=== PATIENT | male | born 1950 | race African-American/Black ===

== ENCOUNTER 2020-09-13 13:23 | Inpatient (IN) | payer OTHER ==
[2020-09-13 15:53] VITALS: BMI 23.7
[2020-09-13] MEDS ORDERED: MAGNESIUM HYDROX 2400MG/30ML ORAL SUSPENSION 30 ML CUP PO PRN (18:12)
[2020-09-13] MEDS ORDERED: ACETAMINOPHEN 325 MG TABLET (FP) PO PRN (18:12)
[2020-09-13] MEDS ORDERED: LORazepam 1 MG TABLET PO PRN (18:12)
[2020-09-13] MEDS ORDERED: ONDANSETRON *ODT* 4 MG TABLET SL PRN (18:12)
[2020-09-13] MEDS ORDERED: MAGNESIUM CITRATE 300 ML BOTTLE PO PRN (18:12)
[2020-09-13] MEDS ORDERED: MENTHOL/PHENOL 1 EACH UD MM PRN (18:12)
[2020-09-13] MEDS ORDERED: NICOTINE POLACRILEX 2 MG GUM BUC PRN (18:12)
[2020-09-13] MEDS ORDERED: BISMUTH SUBSALICYLATE 524 MG/30 ML PO PRN (18:12)
[2020-09-13] MEDS: LOSARTAN POTASSIUM 50 MG TABLET PO SCH (20:34)
[2020-09-13] MEDS: NICOTINE 14 MG/24 HOURS TOPICAL PATCH TD SCH (20:35)
[2020-09-13] MEDS: FLUTICASONE PROP 0.05% 16 GM NASAL SPRAY NS SCH (23:19)
[2020-09-13] MEDS: MELATONIN 5 MG TABLETS PO SCH (23:19)
[2020-09-13] MEDS: LORazepam 2 MG TABLET PO SCH (23:19)
[2020-09-13] MEDS: CALCIUM 500MG/VIT-D 200 UNITS COMBO TABLET (FP) PO SCH (23:19)
[2020-09-13] MEDS: hydrOXYzine PAMOATE 25 MG CAPSULE (FP) PO SCH (23:19)
[2020-09-13] MEDS: THIAMINE HCL 100 MG TABLET (FP) PO SCH (23:19)
[2020-09-14] MEDS: MAG HYDROX/AL HYDROX/SIMETH 30 ML UNIT-DOSE CUP PO PRN ×3 (02:10→22:29)
[2020-09-14] MEDS: METHOCARBAMOL 500 MG TABLET PO PRN (05:36)
[2020-09-14] MEDS: hydrOXYzine PAMOATE 25 MG CAPSULE (FP) PO SCH ×5 (05:36→22:27)
[2020-09-14] MEDS: LORazepam 2 MG TABLET PO SCH ×4 (05:36→22:27)
[2020-09-14] MEDS: PRENATAL VITAMINS W/ FOLIC ACID TABLET (FP) PO SCH (10:19)
[2020-09-14] MEDS: FLUTICASONE PROP 0.05% 16 GM NASAL SPRAY NS SCH ×2 (10:19→22:27)
[2020-09-14] MEDS: FAMOTIDINE 20 MG TABLET PO SCH (10:20)
[2020-09-14] MEDS: LOSARTAN POTASSIUM 50 MG TABLET PO SCH (10:20)
[2020-09-14] MEDS: CALCIUM 500MG/VIT-D 200 UNITS COMBO TABLET (FP) PO SCH ×2 (10:20→22:27)
[2020-09-14] MEDS: NICOTINE 14 MG/24 HOURS TOPICAL PATCH TD SCH (10:21)
[2020-09-14 12:44] LABS: HEMATOCRIT 35.8 % (35.4-49); HEMOGLOBIN 12.2 GM/dL (11.7-16.9); MCH 28.9 pg (25.7-33.7); MEAN PLT VOLUME 8.6 fl (7.5-11.1); PLATELET COUNT 143 10^3/uL (134-434); RBC 4.21 M/mm3 (4.00-5.60); RDW 13.8 % (11.9-15.9); WHITE BLOOD COUNT 2.6 K/mm3 (4.0-10.0)
[2020-09-14 12:52] LABS: ALBUMIN 3.3 g/dl (3.4-5.0)
[2020-09-14 13:01] LABS: BLOOD UREA NITROGEN 14.5 mg/dL (7-18)
[2020-09-14 13:03] LABS: BILIRUBIN,TOTAL 0.8 mg/dL (0.2-1); CALCIUM 8.3 mg/dL (8.5-10.1)
[2020-09-14 13:05] LABS: CREATININE 0.9 mg/dL (0.55-1.3); TOT PROT 6.3 g/dl (6.4-8.2)
[2020-09-14] MEDS: NIFEdipine E.R. 90 MG TABLET PO SCH (13:49)
[2020-09-14] MEDS: MELATONIN 5 MG TABLETS PO SCH (22:27)
[2020-09-14] MEDS: THIAMINE HCL 100 MG TABLET (FP) PO SCH (22:27)
[2020-09-15] MEDS: hydrOXYzine PAMOATE 25 MG CAPSULE (FP) PO SCH ×5 (05:34→22:00)
[2020-09-15] MEDS: LORazepam 1 MG TABLET PO SCH ×4 (05:34→22:01)
[2020-09-15] MEDS: METHOCARBAMOL 500 MG TABLET PO PRN (05:35)
[2020-09-15] MEDS: PRENATAL VITAMINS W/ FOLIC ACID TABLET (FP) PO SCH (10:36)
[2020-09-15] MEDS: LOSARTAN POTASSIUM 50 MG TABLET PO SCH (10:36)
[2020-09-15] MEDS: CALCIUM 500MG/VIT-D 200 UNITS COMBO TABLET (FP) PO SCH ×2 (10:37→22:00)
[2020-09-15] MEDS: FLUTICASONE PROP 0.05% 16 GM NASAL SPRAY NS SCH ×2 (10:37→22:01)
[2020-09-15] MEDS: NICOTINE 14 MG/24 HOURS TOPICAL PATCH TD SCH (10:38)
[2020-09-15] MEDS: FAMOTIDINE 20 MG TABLET PO SCH (10:38)
[2020-09-15] MEDS: NIFEdipine E.R. 90 MG TABLET PO SCH (10:42)
[2020-09-15] MEDS: LIDOCAINE 5% TOPICAL PATCH TP SCH (11:00)
[2020-09-15] MEDS: THIAMINE HCL 100 MG TABLET (FP) PO SCH (22:00)
[2020-09-15] MEDS: MELATONIN 5 MG TABLETS PO SCH (22:00)
[2020-09-15] MEDS: LIDOCAINE PATCH REMOVAL MC SCH (22:03)
[2020-09-16] MEDS ORDERED: LORazepam 0.5 MG TABLET PO PRN
[2020-09-16] MEDS: LORazepam 0.5 MG TABLET PO SCH ×4 (06:34→22:03)
[2020-09-16] MEDS: hydrOXYzine PAMOATE 25 MG CAPSULE (FP) PO SCH ×5 (06:35→22:03)
[2020-09-16] MEDS: NIFEdipine E.R. 90 MG TABLET PO SCH (10:16)
[2020-09-16] MEDS: NICOTINE 14 MG/24 HOURS TOPICAL PATCH TD SCH (10:16)
[2020-09-16] MEDS: CALCIUM 500MG/VIT-D 200 UNITS COMBO TABLET (FP) PO SCH ×2 (10:16→22:04)
[2020-09-16] MEDS: PRENATAL VITAMINS W/ FOLIC ACID TABLET (FP) PO SCH (10:16)
[2020-09-16] MEDS: FLUTICASONE PROP 0.05% 16 GM NASAL SPRAY NS SCH ×2 (10:17→22:04)
[2020-09-16] MEDS: LIDOCAINE 5% TOPICAL PATCH TP SCH (10:18)
[2020-09-16] MEDS: FAMOTIDINE 20 MG TABLET PO SCH (10:19)
[2020-09-16] MEDS: LOSARTAN POTASSIUM 50 MG TABLET PO SCH (13:15)
[2020-09-16 13:31] LABS: BASO % 0.8 % (0-2.0); EOS % 3.4 % (0-4.5); HEMATOCRIT 40.8 % (35.4-49); HEMOGLOBIN 13.4 GM/dL (11.7-16.9); LYMPH % 31.1 % (8-40); MCH 28.2 pg (25.7-33.7); MCHC 32.7 g/dl (32.0-35.9); MEAN CELL VOLUME 86.2 fl (80-96); MEAN PLT VOLUME 8.8 fl (7.5-11.1); MONO % 12.3 % (3.8-10.2); NEUT % 52.4 % (42.8-82.8); PLATELET COUNT 138 10^3/uL (134-434); RBC 4.74 M/mm3 (4.00-5.60); RDW 13.5 % (11.9-15.9); WHITE BLOOD COUNT 3.3 K/mm3 (4.0-10.0)
[2020-09-16] MEDS: ACETAMINOPHEN 325 MG TABLET (FP) PO PRN (20:10)
[2020-09-16] MEDS: MELATONIN 5 MG TABLETS PO SCH (22:03)
[2020-09-16] MEDS: LIDOCAINE PATCH REMOVAL MC SCH (22:04)
[2020-09-16] MEDS: THIAMINE HCL 100 MG TABLET (FP) PO SCH (22:04)
[2020-09-17] MEDS ORDERED: LORazepam 0.5 MG TABLET PO ONE (05:00)
[2020-09-17] MEDS: hydrOXYzine PAMOATE 25 MG CAPSULE (FP) PO SCH ×5 (06:06→22:02)
[2020-09-17] MEDS: ACETAMINOPHEN 325 MG TABLET (FP) PO PRN ×2 (06:06→22:05)
[2020-09-17] MEDS: PRENATAL VITAMINS W/ FOLIC ACID TABLET (FP) PO SCH (10:44)
[2020-09-17] MEDS: FAMOTIDINE 20 MG TABLET PO SCH (10:44)
[2020-09-17] MEDS: NICOTINE 14 MG/24 HOURS TOPICAL PATCH TD SCH (10:44)
[2020-09-17] MEDS: LIDOCAINE 5% TOPICAL PATCH TP SCH (10:45)
[2020-09-17] MEDS: LORazepam 0.5 MG TABLET PO SCH ×2 (10:45→21:30)
[2020-09-17] MEDS: NIFEdipine E.R. 90 MG TABLET PO SCH (10:45)
[2020-09-17] MEDS: FLUTICASONE PROP 0.05% 16 GM NASAL SPRAY NS SCH ×2 (10:45→22:01)
[2020-09-17] MEDS: CALCIUM 500MG/VIT-D 200 UNITS COMBO TABLET (FP) PO SCH ×2 (10:45→22:02)
[2020-09-17] MEDS: LOSARTAN POTASSIUM 50 MG TABLET PO SCH (10:45)
[2020-09-17] MEDS: THIAMINE HCL 100 MG TABLET (FP) PO SCH (22:02)
[2020-09-17] MEDS: MELATONIN 5 MG TABLETS PO SCH (22:02)
[2020-09-17] MEDS: LIDOCAINE PATCH REMOVAL MC SCH (22:03)
[2020-09-18] MEDS ORDERED: LORazepam 0.5 MG TABLET PO ONE (05:00)
[2020-09-18] MEDS: hydrOXYzine PAMOATE 25 MG CAPSULE (FP) PO SCH (05:34)
[2020-09-18 09:14] VITALS: BP 130/84; PULSE 68; TEMP 96.8
== END 2020-09-18 09:52 | disposition home or self-care (01) | DRG 897 ==
LOC: YASAS 13:23 → Y3N 18:58
PROVIDERS: ADMIT Allergy & Immunology; ATTEND Allergy & Immunology
PROC: HZ2ZZZZ Detoxification Services for Substance Abuse Treatment (ICD-10-PCS; principal; 2020-09-13)
DX: F10.230 Alcohol dependence with withdrawal, uncomplicated (principal); F14.20 Cocaine dependence, uncomplicated; F17.210 Nicotine dependence, cigarettes, uncomplicated; F19.24 Other psychoactive substance dependence with psychoactive substance-induced mood disorder; M41.9 Scoliosis, unspecified; M54.5 Low back pain; G89.29 Other chronic pain; Z96.641 Presence of right artificial hip joint; Z85.46 Personal history of malignant neoplasm of prostate
CPT/HCPCS: 36415; 72100-TC-FY; 80053; 85025; 85027; 86780; 93005; 93010; C9803; Q0162; U0003; U0005

== ENCOUNTER 2020-10-13 11:52 | Inpatient (IN) | payer OTHER ==
[~2020-10-13 11:52] MED LIST: chlordiazePOXIDE HCL 25 MG CAPSULE PO SCH
[2020-10-13 12:35] VITALS: BMI 24.3
[2020-10-13] MEDS ORDERED: ACETAMINOPHEN 325 MG TABLET (FP) PO PRN (12:51)
[2020-10-13] MEDS ORDERED: NICOTINE 10 MG CARTRIDGE (INHALER) IH PRN (12:51)
[2020-10-13] MEDS ORDERED: chlordiazePOXIDE HCL 25 MG CAPSULE PO PRN (12:51)
[2020-10-13] MEDS ORDERED: MAGNESIUM CITRATE 300 ML BOTTLE PO PRN (12:51)
[2020-10-13] MEDS ORDERED: BISMUTH SUBSALICYLATE 524 MG/30 ML PO PRN (12:51)
[2020-10-13] MEDS ORDERED: MENTHOL/PHENOL 1 EACH UD MM PRN (12:51)
[2020-10-13] MEDS ORDERED: IBUPROFEN 400 MG TABLET (FP) PO PRN (12:51)
[2020-10-13] MEDS ORDERED: chlordiazePOXIDE HCL 25 MG CAPSULE PO SCH (12:55)
[2020-10-13] MEDS ORDERED: diazePAM 5 MG TABLET PO PRN (13:27)
[2020-10-13] MEDS: PRENATAL VITAMINS W/ FOLIC ACID TABLET (FP) PO SCH (14:26)
[2020-10-13] MEDS: hydrOXYzine PAMOATE 25 MG CAPSULE (FP) PO SCH ×3 (14:26→22:14)
[2020-10-13] MEDS: NICOTINE 7 MG/24 HOURS TOPICAL PATCH TD SCH (14:27)
[2020-10-13 15:56] LABS: CALCIUM 8.3 mg/dL (8.5-10.1)
[2020-10-13 15:57] LABS: ALBUMIN 3.8 g/dl (3.4-5.0); BLOOD UREA NITROGEN 23.4 mg/dL (7-18)
[2020-10-13 16:00] LABS: CREATININE 1.3 mg/dL (0.55-1.3)
[2020-10-13 16:02] LABS: BILIRUBIN,TOTAL 0.9 mg/dL (0.2-1); TOT PROT 7.2 g/dl (6.4-8.2)
[2020-10-13 16:08] LABS: HEMATOCRIT 37.9 % (35.4-49); HEMOGLOBIN 12.8 GM/dL (11.7-16.9); MCH 28.3 pg (25.7-33.7); MCHC 33.7 g/dl (32.0-35.9); MEAN CELL VOLUME 83.9 fl (80-96); MEAN PLT VOLUME 8.3 fl (7.5-11.1); PLATELET COUNT 191 10^3/uL (134-434); RBC 4.52 M/mm3 (4.00-5.60); RDW 14.1 % (11.9-15.9); WHITE BLOOD COUNT 4.7 K/mm3 (4.0-10.0)
[2020-10-13] MEDS: ONDANSETRON *ODT* 4 MG TABLET SL PRN (17:27)
[2020-10-13] MEDS: diazePAM 5 MG TABLET PO SCH ×2 (17:42→22:12)
[2020-10-13] MEDS: THIAMINE HCL 100 MG TABLET (FP) PO SCH (22:13)
[2020-10-13] MEDS: MELATONIN 5 MG TABLETS PO SCH (22:14)
[2020-10-14] MEDS: FLUTICASONE PROP 0.05% 16 GM NASAL SPRAY NS SCH ×3 (00:06→22:41)
[2020-10-14] MEDS: hydrOXYzine PAMOATE 25 MG CAPSULE (FP) PO SCH ×5 (06:28→22:42)
[2020-10-14] MEDS: diazePAM 5 MG TABLET PO SCH ×4 (06:29→22:40)
[2020-10-14] MEDS: PRENATAL VITAMINS W/ FOLIC ACID TABLET (FP) PO SCH (10:37)
[2020-10-14] MEDS: FAMOTIDINE 20 MG TABLET PO SCH (10:38)
[2020-10-14] MEDS: METHOCARBAMOL 500 MG TABLET PO PRN (10:38)
[2020-10-14] MEDS: NICOTINE 7 MG/24 HOURS TOPICAL PATCH TD SCH (10:41)
[2020-10-14] MEDS: LOSARTAN POTASSIUM 50 MG TABLET PO SCH (12:46)
[2020-10-14] MEDS: NIFEdipine E.R. 90 MG TABLET PO SCH (12:46)
[2020-10-14] MEDS: ONDANSETRON *ODT* 4 MG TABLET SL PRN (19:39)
[2020-10-14] MEDS: THIAMINE HCL 100 MG TABLET (FP) PO SCH (22:40)
[2020-10-14] MEDS: MELATONIN 5 MG TABLETS PO SCH (22:41)
[2020-10-15] MEDS ORDERED: chlordiazePOXIDE HCL 25 MG CAPSULE PO SCH (05:00)
[2020-10-15] MEDS: hydrOXYzine PAMOATE 25 MG CAPSULE (FP) PO SCH ×5 (05:45→21:59)
[2020-10-15] MEDS: diazePAM 5 MG TABLET PO SCH ×3 (05:45→21:59)
[2020-10-15] MEDS: PRENATAL VITAMINS W/ FOLIC ACID TABLET (FP) PO SCH (10:31)
[2020-10-15] MEDS: FLUTICASONE PROP 0.05% 16 GM NASAL SPRAY NS SCH ×2 (10:31→22:01)
[2020-10-15] MEDS: FAMOTIDINE 20 MG TABLET PO SCH (10:31)
[2020-10-15] MEDS: NICOTINE 7 MG/24 HOURS TOPICAL PATCH TD SCH (10:32)
[2020-10-15] MEDS: LOSARTAN POTASSIUM 50 MG TABLET PO SCH (14:07)
[2020-10-15] MEDS: NIFEdipine E.R. 90 MG TABLET PO SCH (14:07)
[2020-10-15] MEDS ORDERED: hydrOXYzine PAMOATE 25 MG CAPSULE (FP) PO ONE (20:20)
[2020-10-15] MEDS: MAG HYDROX/AL HYDROX/SIMETH 30 ML UNIT-DOSE CUP PO PRN (20:43)
[2020-10-15] MEDS: THIAMINE HCL 100 MG TABLET (FP) PO SCH (21:59)
[2020-10-15] MEDS: MELATONIN 5 MG TABLETS PO SCH (21:59)
[2020-10-16] MEDS ORDERED: chlordiazePOXIDE HCL 10 MG CAPSULE PO PRN
[2020-10-16] MEDS ORDERED: chlordiazePOXIDE HCL 10 MG CAPSULE PO SCH (05:00)
[2020-10-16] MEDS: hydrOXYzine PAMOATE 25 MG CAPSULE (FP) PO SCH ×6 (05:12→22:24)
[2020-10-16] MEDS: ACETAMINOPHEN 325 MG TABLET (FP) PO PRN (05:13)
[2020-10-16] MEDS: ONDANSETRON *ODT* 4 MG TABLET SL PRN (05:14)
[2020-10-16] MEDS: diazePAM 5 MG TABLET PO SCH ×3 (05:14→18:36)
[2020-10-16] MEDS ORDERED: PATIENT'S OWN MEDICATION (NON-FORMULARY) (Omeprazole Magnesium [Prilosec] 10 MG Suspdr.Pkt PO SCH (10:00)
[2020-10-16] MEDS: FLUTICASONE PROP 0.05% 16 GM NASAL SPRAY NS SCH ×2 (10:18→22:24)
[2020-10-16] MEDS: amLODIPine BESYLATE 5 MG TABLET (FP) PO SCH (10:18)
[2020-10-16] MEDS: LOSARTAN POTASSIUM 50 MG TABLET PO SCH (10:19)
[2020-10-16] MEDS: FAMOTIDINE 20 MG TABLET PO SCH (10:19)
[2020-10-16] MEDS: NIFEdipine E.R. 90 MG TABLET PO SCH (10:19)
[2020-10-16] MEDS: PRENATAL VITAMINS W/ FOLIC ACID TABLET (FP) PO SCH (10:19)
[2020-10-16] MEDS: METHOCARBAMOL 500 MG TABLET PO PRN (10:19)
[2020-10-16] MEDS: NICOTINE 7 MG/24 HOURS TOPICAL PATCH TD SCH (10:21)
[2020-10-16] MEDS: HYDROCHLOROTHIAZIDE 12.5 MG CAPSULE (FP) PO SCH (13:58)
[2020-10-16] MEDS: MAGNESIUM HYDROX 2400MG/30ML ORAL SUSPENSION 30 ML CUP PO PRN ×2 (17:44→22:43)
[2020-10-16] MEDS: MAG HYDROX/AL HYDROX/SIMETH 30 ML UNIT-DOSE CUP PO PRN (17:45)
[2020-10-16] MEDS: MELATONIN 5 MG TABLETS PO SCH (22:24)
[2020-10-16] MEDS: THIAMINE HCL 100 MG TABLET (FP) PO SCH (22:24)
[2020-10-17] MEDS ORDERED: chlordiazePOXIDE HCL 10 MG CAPSULE PO SCH (05:00)
[2020-10-17] MEDS ORDERED: diazePAM 5 MG TABLET PO ONE (06:00)
[2020-10-17] MEDS: ONDANSETRON *ODT* 4 MG TABLET SL PRN (06:20)
[2020-10-17] MEDS: ACETAMINOPHEN 325 MG TABLET (FP) PO PRN (06:20)
[2020-10-17] MEDS: hydrOXYzine PAMOATE 25 MG CAPSULE (FP) PO SCH ×5 (06:21→22:23)
[2020-10-17] MEDS: METHOCARBAMOL 500 MG TABLET PO PRN (11:35)
[2020-10-17] MEDS: LOSARTAN POTASSIUM 50 MG TABLET PO SCH (11:35)
[2020-10-17] MEDS: amLODIPine BESYLATE 5 MG TABLET (FP) PO SCH (11:35)
[2020-10-17] MEDS: FAMOTIDINE 20 MG TABLET PO SCH (11:36)
[2020-10-17] MEDS: HYDROCHLOROTHIAZIDE 12.5 MG CAPSULE (FP) PO SCH (11:36)
[2020-10-17] MEDS: FLUTICASONE PROP 0.05% 16 GM NASAL SPRAY NS SCH ×2 (11:36→22:24)
[2020-10-17] MEDS: NICOTINE 7 MG/24 HOURS TOPICAL PATCH TD SCH (11:39)
[2020-10-17] MEDS: PRENATAL VITAMINS W/ FOLIC ACID TABLET (FP) PO SCH (11:40)
[2020-10-17] MEDS: NIFEdipine E.R. 90 MG TABLET PO SCH (11:40)
[2020-10-17] MEDS: MELATONIN 5 MG TABLETS PO SCH (22:23)
[2020-10-17] MEDS: THIAMINE HCL 100 MG TABLET (FP) PO SCH (22:23)
[2020-10-18] MEDS ORDERED: chlordiazePOXIDE HCL 10 MG CAPSULE PO ONE (05:00)
[2020-10-18] MEDS: hydrOXYzine PAMOATE 25 MG CAPSULE (FP) PO SCH ×2 (06:26→11:04)
[2020-10-18 06:49] VITALS: BP 111/74; PULSE 62; TEMP 96.1
[2020-10-18] MEDS: FAMOTIDINE 20 MG TABLET PO SCH (10:11)
[2020-10-18] MEDS: amLODIPine BESYLATE 5 MG TABLET (FP) PO SCH (10:11)
[2020-10-18] MEDS: METHOCARBAMOL 500 MG TABLET PO PRN (10:11)
[2020-10-18] MEDS: PRENATAL VITAMINS W/ FOLIC ACID TABLET (FP) PO SCH (10:11)
[2020-10-18] MEDS: FLUTICASONE PROP 0.05% 16 GM NASAL SPRAY NS SCH (10:12)
[2020-10-18] MEDS: HYDROCHLOROTHIAZIDE 12.5 MG CAPSULE (FP) PO SCH (10:12)
[2020-10-18] MEDS: NIFEdipine E.R. 90 MG TABLET PO SCH (10:12)
[2020-10-18] MEDS: LOSARTAN POTASSIUM 50 MG TABLET PO SCH (10:12)
[2020-10-18] MEDS: NICOTINE 7 MG/24 HOURS TOPICAL PATCH TD SCH (10:15)
== END 2020-10-18 11:35 | disposition other institution (70) | DRG 897 ==
LOC: YASAS 11:52 → Y6N 12:57 → UNDODISIN 10-15 07:43
PROVIDERS: ADMIT Allergy & Immunology; ATTEND Allergy & Immunology
PROC: HZ2ZZZZ Detoxification Services for Substance Abuse Treatment (ICD-10-PCS; principal; 2020-10-13)
DX: F10.230 Alcohol dependence with withdrawal, uncomplicated (principal); F14.20 Cocaine dependence, uncomplicated; F17.210 Nicotine dependence, cigarettes, uncomplicated; I10 Essential (primary) hypertension; K21.9 Gastro-esophageal reflux disease without esophagitis; M19.90 Unspecified osteoarthritis, unspecified site; M54.5 Low back pain; G89.29 Other chronic pain; Z85.46 Personal history of malignant neoplasm of prostate; Z96.641 Presence of right artificial hip joint
CPT/HCPCS: 36415; 80053; 84520; 85027; 86780; 93005; 93010; C9803; Q0162; U0003; U0005

== ENCOUNTER 2020-10-18 10:41 | Inpatient (IN) | payer OTHER ==
[2020-10-18] MEDS ORDERED: MAGNESIUM CITRATE 300 ML BOTTLE PO PRN (12:04)
[2020-10-18] MEDS ORDERED: NICOTINE POLACRILEX 2 MG GUM BUC PRN (12:04)
[2020-10-18] MEDS ORDERED: LOPERAMIDE HCL 2 MG CAPSULE PO PRN (12:04)
[2020-10-18] MEDS ORDERED: NICOTINE 10 MG CARTRIDGE (INHALER) IH PRN (12:04)
[2020-10-18] MEDS ORDERED: guaiFENesin 200 MG/10 ML 10 ML UNIT-DOSE CUPS PO PRN (12:04)
[2020-10-18] MEDS: THIAMINE HCL 100 MG TABLET (FP) PO SCH (21:33)
[2020-10-18] MEDS: MELATONIN 5 MG TABLETS PO SCH (21:33)
[2020-10-18] MEDS: FLUTICASONE PROP 0.05% 16 GM NASAL SPRAY NS SCH (21:34)
[2020-10-19] MEDS: ACETAMINOPHEN 325 MG TABLET (FP) PO PRN ×2 (06:23→19:20)
[2020-10-19] MEDS ORDERED: PT OWN MED DRAWER 7, Y5N ONE (08:55)
[2020-10-19] MEDS: LOSARTAN POTASSIUM 50 MG TABLET PO SCH (09:48)
[2020-10-19] MEDS: HYDROCHLOROTHIAZIDE 12.5 MG CAPSULE (FP) PO SCH (09:48)
[2020-10-19] MEDS: NIFEdipine E.R. 90 MG TABLET PO SCH (09:48)
[2020-10-19] MEDS: FAMOTIDINE 10 MG TABLET PO SCH (09:49)
[2020-10-19] MEDS: PRENATAL VITAMINS W/ FOLIC ACID TABLET (FP) PO SCH (09:49)
[2020-10-19] MEDS: NICOTINE 7 MG/24 HOURS TOPICAL PATCH TD SCH (09:49)
[2020-10-19] MEDS ORDERED: amLODIPine BESYLATE 5 MG TABLET (FP) PO SCH (10:00)
[2020-10-19] MEDS ORDERED: PATIENT'S OWN MEDICATION (NON-FORMULARY) (Omeprazole [Omeprazole] 10 MG Capsule.Dr) PO SCH (10:00)
[2020-10-19] MEDS: FLUTICASONE PROP 0.05% 16 GM NASAL SPRAY NS SCH ×2 (10:45→21:17)
[2020-10-19] MEDS: MELATONIN 5 MG TABLETS PO SCH (21:16)
[2020-10-19] MEDS: THIAMINE HCL 100 MG TABLET (FP) PO SCH (21:16)
[2020-10-20] MEDS: IBUPROFEN 400 MG TABLET (FP) PO PRN (06:56)
[2020-10-20] MEDS: MAG HYDROX/AL HYDROX/SIMETH 30 ML UNIT-DOSE CUP PO PRN (06:56)
[2020-10-20] MEDS: MAGNESIUM HYDROX 2400MG/30ML ORAL SUSPENSION 30 ML CUP PO PRN (06:58)
[2020-10-20] MEDS ORDERED: PT OWN MED DRAWER 7, Y5N ONE ×3 (08:37→20:04)
[2020-10-20] MEDS: FAMOTIDINE 10 MG TABLET PO SCH (09:33)
[2020-10-20] MEDS: FLUTICASONE PROP 0.05% 16 GM NASAL SPRAY NS SCH ×2 (09:36→21:29)
[2020-10-20] MEDS: LOSARTAN POTASSIUM 50 MG TABLET PO SCH (09:37)
[2020-10-20] MEDS: NICOTINE 7 MG/24 HOURS TOPICAL PATCH TD SCH (09:37)
[2020-10-20] MEDS: HYDROCHLOROTHIAZIDE 12.5 MG CAPSULE (FP) PO SCH (09:37)
[2020-10-20] MEDS: PRENATAL VITAMINS W/ FOLIC ACID TABLET (FP) PO SCH (09:38)
[2020-10-20] MEDS: NIFEdipine E.R. 90 MG TABLET PO SCH (09:39)
[2020-10-20] MEDS: THIAMINE HCL 100 MG TABLET (FP) PO SCH (21:28)
[2020-10-20] MEDS: MELATONIN 5 MG TABLETS PO SCH (21:28)
[2020-10-21] MEDS ORDERED: PT OWN MED DRAWER 7, Y5N ONE (08:09)
[2020-10-21] MEDS: PRENATAL VITAMINS W/ FOLIC ACID TABLET (FP) PO SCH (09:38)
[2020-10-21] MEDS: HYDROCHLOROTHIAZIDE 12.5 MG CAPSULE (FP) PO SCH (09:38)
[2020-10-21] MEDS: FLUTICASONE PROP 0.05% 16 GM NASAL SPRAY NS SCH ×2 (09:38→21:30)
[2020-10-21] MEDS: LOSARTAN POTASSIUM 50 MG TABLET PO SCH (09:38)
[2020-10-21] MEDS: FAMOTIDINE 10 MG TABLET PO SCH (09:38)
[2020-10-21] MEDS: NIFEdipine E.R. 90 MG TABLET PO SCH (09:39)
[2020-10-21] MEDS: NICOTINE 7 MG/24 HOURS TOPICAL PATCH TD SCH (09:39)
[2020-10-21] MEDS: MAGNESIUM HYDROX 2400MG/30ML ORAL SUSPENSION 30 ML CUP PO PRN (09:46)
[2020-10-21] MEDS: THIAMINE HCL 100 MG TABLET (FP) PO SCH (21:31)
[2020-10-21] MEDS: MELATONIN 5 MG TABLETS PO SCH (21:31)
[2020-10-22] MEDS ORDERED: PT OWN MED DRAWER 7, Y5N ONE ×2 (04:02→08:38)
[2020-10-22] MEDS: FAMOTIDINE 10 MG TABLET PO SCH (09:43)
[2020-10-22] MEDS: PRENATAL VITAMINS W/ FOLIC ACID TABLET (FP) PO SCH (09:43)
[2020-10-22] MEDS: NICOTINE 7 MG/24 HOURS TOPICAL PATCH TD SCH (09:43)
[2020-10-22] MEDS: NIFEdipine E.R. 90 MG TABLET PO SCH (09:43)
[2020-10-22] MEDS: LOSARTAN POTASSIUM 50 MG TABLET PO SCH (09:43)
[2020-10-22] MEDS: HYDROCHLOROTHIAZIDE 12.5 MG CAPSULE (FP) PO SCH (09:43)
[2020-10-22] MEDS: FLUTICASONE PROP 0.05% 16 GM NASAL SPRAY NS SCH ×2 (09:44→21:31)
[2020-10-22] MEDS: MELATONIN 5 MG TABLETS PO SCH (21:31)
[2020-10-22] MEDS: THIAMINE HCL 100 MG TABLET (FP) PO SCH (21:31)
[2020-10-23] MEDS: ACETAMINOPHEN 325 MG TABLET (FP) PO PRN (06:17)
[2020-10-23] MEDS: MAGNESIUM HYDROX 2400MG/30ML ORAL SUSPENSION 30 ML CUP PO PRN (06:18)
[2020-10-23] MEDS ORDERED: PT OWN MED DRAWER 7, Y5N ONE ×2 (08:06→18:40)
[2020-10-23] MEDS: FLUTICASONE PROP 0.05% 16 GM NASAL SPRAY NS SCH ×2 (09:33→21:04)
[2020-10-23] MEDS: PRENATAL VITAMINS W/ FOLIC ACID TABLET (FP) PO SCH (09:33)
[2020-10-23] MEDS: FAMOTIDINE 10 MG TABLET PO SCH (09:33)
[2020-10-23] MEDS: NICOTINE 7 MG/24 HOURS TOPICAL PATCH TD SCH (09:33)
[2020-10-23] MEDS: HYDROCHLOROTHIAZIDE 12.5 MG CAPSULE (FP) PO SCH (09:35)
[2020-10-23] MEDS: LOSARTAN POTASSIUM 50 MG TABLET PO SCH (09:36)
[2020-10-23] MEDS: NIFEdipine E.R. 90 MG TABLET PO SCH (09:36)
[2020-10-23] MEDS: MELATONIN 5 MG TABLETS PO SCH (21:04)
[2020-10-23] MEDS: THIAMINE HCL 100 MG TABLET (FP) PO SCH (21:04)
[2020-10-24] MEDS: ACETAMINOPHEN 325 MG TABLET (FP) PO PRN ×2 (06:15→21:21)
[2020-10-24] MEDS: MAGNESIUM HYDROX 2400MG/30ML ORAL SUSPENSION 30 ML CUP PO PRN (06:17)
[2020-10-24] MEDS ORDERED: PT OWN MED DRAWER 7, Y5N ONE ×2 (08:05→19:35)
[2020-10-24] MEDS: FLUTICASONE PROP 0.05% 16 GM NASAL SPRAY NS SCH ×2 (09:23→21:20)
[2020-10-24] MEDS: LOSARTAN POTASSIUM 50 MG TABLET PO SCH (09:24)
[2020-10-24] MEDS: NIFEdipine E.R. 90 MG TABLET PO SCH (09:24)
[2020-10-24] MEDS: FAMOTIDINE 10 MG TABLET PO SCH (09:24)
[2020-10-24] MEDS: HYDROCHLOROTHIAZIDE 12.5 MG CAPSULE (FP) PO SCH (09:24)
[2020-10-24] MEDS: NICOTINE 7 MG/24 HOURS TOPICAL PATCH TD SCH (09:25)
[2020-10-24] MEDS: PRENATAL VITAMINS W/ FOLIC ACID TABLET (FP) PO SCH (09:25)
[2020-10-24] MEDS: THIAMINE HCL 100 MG TABLET (FP) PO SCH (21:20)
[2020-10-24] MEDS: MELATONIN 5 MG TABLETS PO SCH (21:20)
[2020-10-25] MEDS ORDERED: PT OWN MED DRAWER 7, Y5N ONE (09:27)
[2020-10-25] MEDS: PRENATAL VITAMINS W/ FOLIC ACID TABLET (FP) PO SCH (09:56)
[2020-10-25] MEDS: FLUTICASONE PROP 0.05% 16 GM NASAL SPRAY NS SCH ×2 (09:57→21:35)
[2020-10-25] MEDS: NICOTINE 7 MG/24 HOURS TOPICAL PATCH TD SCH (09:57)
[2020-10-25] MEDS: FAMOTIDINE 10 MG TABLET PO SCH (09:57)
[2020-10-25] MEDS: HYDROCHLOROTHIAZIDE 12.5 MG CAPSULE (FP) PO SCH (12:04)
[2020-10-25] MEDS: LOSARTAN POTASSIUM 50 MG TABLET PO SCH (12:04)
[2020-10-25] MEDS: NIFEdipine E.R. 90 MG TABLET PO SCH (12:04)
[2020-10-25] MEDS: MELATONIN 5 MG TABLETS PO SCH (21:35)
[2020-10-25] MEDS: THIAMINE HCL 100 MG TABLET (FP) PO SCH (21:35)
[2020-10-26] MEDS ORDERED: PT OWN MED DRAWER 7, Y5N ONE (08:36)
[2020-10-26] MEDS: FLUTICASONE PROP 0.05% 16 GM NASAL SPRAY NS SCH ×2 (09:38→21:32)
[2020-10-26] MEDS: FAMOTIDINE 10 MG TABLET PO SCH (09:38)
[2020-10-26] MEDS: NIFEdipine E.R. 90 MG TABLET PO SCH (09:39)
[2020-10-26] MEDS: HYDROCHLOROTHIAZIDE 12.5 MG CAPSULE (FP) PO SCH (09:39)
[2020-10-26] MEDS: LOSARTAN POTASSIUM 50 MG TABLET PO SCH (09:39)
[2020-10-26] MEDS: PRENATAL VITAMINS W/ FOLIC ACID TABLET (FP) PO SCH (09:39)
[2020-10-26] MEDS: NICOTINE 7 MG/24 HOURS TOPICAL PATCH TD SCH (09:40)
[2020-10-26] MEDS: MELATONIN 5 MG TABLETS PO SCH (21:32)
[2020-10-26] MEDS: THIAMINE HCL 100 MG TABLET (FP) PO SCH (21:32)
[2020-10-27] MEDS: ACETAMINOPHEN 325 MG TABLET (FP) PO PRN (06:33)
[2020-10-27] MEDS ORDERED: PT OWN MED DRAWER 7, Y5N ONE (08:35)
[2020-10-27] MEDS: NICOTINE 7 MG/24 HOURS TOPICAL PATCH TD SCH (09:53)
[2020-10-27] MEDS: FAMOTIDINE 10 MG TABLET PO SCH (09:53)
[2020-10-27] MEDS: NIFEdipine E.R. 90 MG TABLET PO SCH (09:53)
[2020-10-27] MEDS: PRENATAL VITAMINS W/ FOLIC ACID TABLET (FP) PO SCH (09:53)
[2020-10-27] MEDS: FLUTICASONE PROP 0.05% 16 GM NASAL SPRAY NS SCH ×2 (09:54→21:23)
[2020-10-27] MEDS: MELATONIN 5 MG TABLETS PO SCH (21:23)
[2020-10-27] MEDS: THIAMINE HCL 100 MG TABLET (FP) PO SCH (21:23)
[2020-10-28] MEDS: MAGNESIUM HYDROX 2400MG/30ML ORAL SUSPENSION 30 ML CUP PO PRN (06:51)
[2020-10-28] MEDS: ACETAMINOPHEN 325 MG TABLET (FP) PO PRN (06:51)
[2020-10-28] MEDS ORDERED: MASKS NR ONE (08:03)
[2020-10-28] MEDS ORDERED: PT OWN MED DRAWER 7, Y5N ONE ×2 (08:28→15:01)
[2020-10-28] MEDS: FAMOTIDINE 10 MG TABLET PO SCH (09:47)
[2020-10-28] MEDS: NIFEdipine E.R. 90 MG TABLET PO SCH (09:47)
[2020-10-28] MEDS: PRENATAL VITAMINS W/ FOLIC ACID TABLET (FP) PO SCH (09:47)
[2020-10-28] MEDS: NICOTINE 7 MG/24 HOURS TOPICAL PATCH TD SCH (09:48)
[2020-10-28] MEDS: FLUTICASONE PROP 0.05% 16 GM NASAL SPRAY NS SCH ×2 (09:48→23:18)
[2020-10-28] MEDS: IBUPROFEN 400 MG TABLET (FP) PO PRN (19:08)
[2020-10-28] MEDS: THIAMINE HCL 100 MG TABLET (FP) PO SCH (21:11)
[2020-10-28] MEDS: MELATONIN 5 MG TABLETS PO SCH (21:11)
[2020-10-29] MEDS: FLUTICASONE PROP 0.05% 16 GM NASAL SPRAY NS SCH ×2 (09:54→21:58)
[2020-10-29] MEDS: PRENATAL VITAMINS W/ FOLIC ACID TABLET (FP) PO SCH (09:54)
[2020-10-29] MEDS: FAMOTIDINE 10 MG TABLET PO SCH (09:55)
[2020-10-29] MEDS: NICOTINE 7 MG/24 HOURS TOPICAL PATCH TD SCH (09:55)
[2020-10-29] MEDS: NIFEdipine E.R. 90 MG TABLET PO SCH (09:55)
[2020-10-29] MEDS: MELATONIN 5 MG TABLETS PO SCH (21:58)
[2020-10-29] MEDS: THIAMINE HCL 100 MG TABLET (FP) PO SCH (21:58)
[2020-10-30] MEDS: FLUTICASONE PROP 0.05% 16 GM NASAL SPRAY NS SCH ×2 (09:41→21:06)
[2020-10-30] MEDS: NICOTINE 7 MG/24 HOURS TOPICAL PATCH TD SCH (09:41)
[2020-10-30] MEDS: PRENATAL VITAMINS W/ FOLIC ACID TABLET (FP) PO SCH (09:41)
[2020-10-30] MEDS: NIFEdipine E.R. 90 MG TABLET PO SCH (09:42)
[2020-10-30] MEDS: FAMOTIDINE 10 MG TABLET PO SCH (09:42)
[2020-10-30] MEDS: MAGNESIUM HYDROX 2400MG/30ML ORAL SUSPENSION 30 ML CUP PO PRN (20:08)
[2020-10-30] MEDS: ACETAMINOPHEN 325 MG TABLET (FP) PO PRN (20:09)
[2020-10-30] MEDS: THIAMINE HCL 100 MG TABLET (FP) PO SCH (21:05)
[2020-10-30] MEDS: MELATONIN 5 MG TABLETS PO SCH (21:05)
[2020-10-31] MEDS ORDERED: PT OWN MED DRAWER 7, Y5N ONE ×2 (08:38→19:10)
[2020-10-31] MEDS: FAMOTIDINE 10 MG TABLET PO SCH (09:27)
[2020-10-31] MEDS: NICOTINE 7 MG/24 HOURS TOPICAL PATCH TD SCH (09:28)
[2020-10-31] MEDS: FLUTICASONE PROP 0.05% 16 GM NASAL SPRAY NS SCH ×2 (09:28→21:44)
[2020-10-31] MEDS: PRENATAL VITAMINS W/ FOLIC ACID TABLET (FP) PO SCH (09:28)
[2020-10-31] MEDS: NIFEdipine E.R. 90 MG TABLET PO SCH (09:28)
[2020-10-31] MEDS: THIAMINE HCL 100 MG TABLET (FP) PO SCH (21:45)
[2020-10-31] MEDS: MELATONIN 5 MG TABLETS PO SCH (21:45)
[2020-11-01] MEDS: ACETAMINOPHEN 325 MG TABLET (FP) PO PRN (07:02)
[2020-11-01] MEDS ORDERED: PT OWN MED DRAWER 7, Y5N ONE ×3 (09:00→22:42)
[2020-11-01] MEDS: FAMOTIDINE 10 MG TABLET PO SCH (09:26)
[2020-11-01] MEDS: FLUTICASONE PROP 0.05% 16 GM NASAL SPRAY NS SCH ×2 (09:26→21:11)
[2020-11-01] MEDS: NICOTINE 7 MG/24 HOURS TOPICAL PATCH TD SCH (09:27)
[2020-11-01] MEDS: NIFEdipine E.R. 90 MG TABLET PO SCH (09:27)
[2020-11-01] MEDS: PRENATAL VITAMINS W/ FOLIC ACID TABLET (FP) PO SCH (09:27)
[2020-11-01] MEDS: MAG HYDROX/AL HYDROX/SIMETH 30 ML UNIT-DOSE CUP PO PRN (11:28)
[2020-11-01] MEDS: THIAMINE HCL 100 MG TABLET (FP) PO SCH (21:11)
[2020-11-01] MEDS: MELATONIN 5 MG TABLETS PO SCH (21:11)
[2020-11-02] MEDS ORDERED: PT OWN MED DRAWER 7, Y5N ONE ×5 (08:21→10:57)
[2020-11-02] MEDS: PRENATAL VITAMINS W/ FOLIC ACID TABLET (FP) PO SCH (09:37)
[2020-11-02] MEDS: NIFEdipine E.R. 90 MG TABLET PO SCH (09:38)
[2020-11-02] MEDS: FLUTICASONE PROP 0.05% 16 GM NASAL SPRAY NS SCH ×2 (09:38→21:19)
[2020-11-02] MEDS: NICOTINE 7 MG/24 HOURS TOPICAL PATCH TD SCH (09:40)
[2020-11-02] MEDS: FAMOTIDINE 10 MG TABLET PO SCH (10:15)
[2020-11-02] MEDS: ACETAMINOPHEN 325 MG TABLET (FP) PO PRN (14:59)
[2020-11-02] MEDS: MELATONIN 5 MG TABLETS PO SCH (21:19)
[2020-11-02] MEDS: THIAMINE HCL 100 MG TABLET (FP) PO SCH (21:19)
[2020-11-03] MEDS: ACETAMINOPHEN 325 MG TABLET (FP) PO PRN ×2 (06:14→19:23)
[2020-11-03] MEDS: MAGNESIUM HYDROX 2400MG/30ML ORAL SUSPENSION 30 ML CUP PO PRN (06:15)
[2020-11-03] MEDS ORDERED: PT OWN MED DRAWER 7, Y5N ONE (08:22)
[2020-11-03] MEDS: PRENATAL VITAMINS W/ FOLIC ACID TABLET (FP) PO SCH (09:38)
[2020-11-03] MEDS: NIFEdipine E.R. 90 MG TABLET PO SCH (09:38)
[2020-11-03] MEDS: FLUTICASONE PROP 0.05% 16 GM NASAL SPRAY NS SCH ×2 (09:38→22:37)
[2020-11-03] MEDS: FAMOTIDINE 10 MG TABLET PO SCH (09:38)
[2020-11-03] MEDS: NICOTINE 7 MG/24 HOURS TOPICAL PATCH TD SCH (09:39)
[2020-11-03] MEDS: MELATONIN 5 MG TABLETS PO SCH (21:04)
[2020-11-03] MEDS: THIAMINE HCL 100 MG TABLET (FP) PO SCH (21:04)
[2020-11-04] MEDS: PRENATAL VITAMINS W/ FOLIC ACID TABLET (FP) PO SCH (09:42)
[2020-11-04] MEDS: NICOTINE 7 MG/24 HOURS TOPICAL PATCH TD SCH (09:42)
[2020-11-04] MEDS: NIFEdipine E.R. 90 MG TABLET PO SCH (09:42)
[2020-11-04] MEDS: FLUTICASONE PROP 0.05% 16 GM NASAL SPRAY NS SCH ×2 (09:42→21:05)
[2020-11-04] MEDS: FAMOTIDINE 10 MG TABLET PO SCH (10:48)
[2020-11-04] MEDS: ACETAMINOPHEN 325 MG TABLET (FP) PO PRN (16:29)
[2020-11-04] MEDS: THIAMINE HCL 100 MG TABLET (FP) PO SCH (21:05)
[2020-11-04] MEDS: MELATONIN 5 MG TABLETS PO SCH (21:05)
[2020-11-05] MEDS: NICOTINE 7 MG/24 HOURS TOPICAL PATCH TD SCH (09:43)
[2020-11-05] MEDS: FLUTICASONE PROP 0.05% 16 GM NASAL SPRAY NS SCH ×2 (09:43→21:06)
[2020-11-05] MEDS: FAMOTIDINE 10 MG TABLET PO SCH (09:43)
[2020-11-05] MEDS: PRENATAL VITAMINS W/ FOLIC ACID TABLET (FP) PO SCH (09:44)
[2020-11-05] MEDS: NIFEdipine E.R. 90 MG TABLET PO SCH (09:55)
[2020-11-05] MEDS: THIAMINE HCL 100 MG TABLET (FP) PO SCH (21:04)
[2020-11-05] MEDS: MELATONIN 5 MG TABLETS PO SCH (21:05)
[2020-11-05] MEDS ORDERED: PT OWN MED DRAWER 7, Y5N ONE (21:06)
[2020-11-06] MEDS: ACETAMINOPHEN 325 MG TABLET (FP) PO PRN (06:54)
[2020-11-06] MEDS: FLUTICASONE PROP 0.05% 16 GM NASAL SPRAY NS SCH ×2 (09:44→21:21)
[2020-11-06] MEDS: NICOTINE 7 MG/24 HOURS TOPICAL PATCH TD SCH (09:44)
[2020-11-06] MEDS: NIFEdipine E.R. 90 MG TABLET PO SCH (09:44)
[2020-11-06] MEDS: PRENATAL VITAMINS W/ FOLIC ACID TABLET (FP) PO SCH (09:44)
[2020-11-06] MEDS: FAMOTIDINE 10 MG TABLET PO SCH (09:44)
[2020-11-06] MEDS: THIAMINE HCL 100 MG TABLET (FP) PO SCH (21:21)
[2020-11-06] MEDS: MELATONIN 5 MG TABLETS PO SCH (21:21)
[2020-11-07] MEDS ORDERED: PT OWN MED DRAWER 7, Y5N ONE (08:47)
[2020-11-07] MEDS: NIFEdipine E.R. 90 MG TABLET PO SCH (09:30)
[2020-11-07] MEDS: FAMOTIDINE 10 MG TABLET PO SCH (09:30)
[2020-11-07] MEDS: NICOTINE 7 MG/24 HOURS TOPICAL PATCH TD SCH (09:30)
[2020-11-07] MEDS: PRENATAL VITAMINS W/ FOLIC ACID TABLET (FP) PO SCH (09:31)
[2020-11-07] MEDS: FLUTICASONE PROP 0.05% 16 GM NASAL SPRAY NS SCH ×2 (09:31→21:26)
[2020-11-07] MEDS: MAGNESIUM HYDROX 2400MG/30ML ORAL SUSPENSION 30 ML CUP PO PRN (15:29)
[2020-11-07] MEDS: ACETAMINOPHEN 325 MG TABLET (FP) PO PRN (19:22)
[2020-11-07] MEDS: THIAMINE HCL 100 MG TABLET (FP) PO SCH (21:26)
[2020-11-07] MEDS: MELATONIN 5 MG TABLETS PO SCH (21:26)
[2020-11-08 07:01] VITALS: TEMP 98.1
[2020-11-08 09:04] VITALS: BP 103/62; PULSE 77
[2020-11-08] MEDS: PRENATAL VITAMINS W/ FOLIC ACID TABLET (FP) PO SCH (09:58)
[2020-11-08] MEDS: NICOTINE 7 MG/24 HOURS TOPICAL PATCH TD SCH (09:58)
[2020-11-08] MEDS: NIFEdipine E.R. 90 MG TABLET PO SCH (09:59)
[2020-11-08] MEDS: FLUTICASONE PROP 0.05% 16 GM NASAL SPRAY NS SCH ×2 (10:00→21:21)
[2020-11-08] MEDS: FAMOTIDINE 10 MG TABLET PO SCH (10:00)
[2020-11-08] MEDS: MAG HYDROX/AL HYDROX/SIMETH 30 ML UNIT-DOSE CUP PO PRN (19:07)
[2020-11-08] MEDS: THIAMINE HCL 100 MG TABLET (FP) PO SCH (21:20)
[2020-11-08] MEDS: MELATONIN 5 MG TABLETS PO SCH (21:20)
[2020-11-09] MEDS: ACETAMINOPHEN 325 MG TABLET (FP) PO PRN (08:49)
[2020-11-09] MEDS: PRENATAL VITAMINS W/ FOLIC ACID TABLET (FP) PO SCH (09:32)
[2020-11-09] MEDS: FLUTICASONE PROP 0.05% 16 GM NASAL SPRAY NS SCH (09:32)
[2020-11-09] MEDS: FAMOTIDINE 10 MG TABLET PO SCH (09:33)
[2020-11-09] MEDS: NIFEdipine E.R. 90 MG TABLET PO SCH (09:33)
[2020-11-09] MEDS: NICOTINE 7 MG/24 HOURS TOPICAL PATCH TD SCH (09:33)
== END 2020-11-09 10:05 | disposition home or self-care (01) | DRG 895 ==
LOC: YASAS 10:41 → Y3E 10:42 → Y5N 10-28 15:06
PROVIDERS: ADMIT Allergy & Immunology; ATTEND Allergy & Immunology
PROC: HZ42ZZZ Group Counseling for Substance Abuse Treatment, Cognitive-Behavioral (ICD-10-PCS; principal; 2020-10-18)
DX: F10.20 Alcohol dependence, uncomplicated (principal); F14.20 Cocaine dependence, uncomplicated; I10 Essential (primary) hypertension; K21.9 Gastro-esophageal reflux disease without esophagitis; M54.5 Low back pain; G89.29 Other chronic pain; Z85.46 Personal history of malignant neoplasm of prostate; Z96.641 Presence of right artificial hip joint

== ENCOUNTER 2020-11-14 10:27 | Inpatient (IN) | payer OTHER ==
[2020-11-14 10:49] VITALS: BMI 23.0
[2020-11-14] MEDS ORDERED: METHOCARBAMOL 500 MG TABLET PO PRN (11:33)
[2020-11-14] MEDS ORDERED: diazePAM 5 MG TABLET PO PRN (11:33)
[2020-11-14] MEDS ORDERED: MENTHOL/PHENOL 1 EACH UD MM PRN (11:33)
[2020-11-14] MEDS ORDERED: ONDANSETRON *ODT* 4 MG TABLET SL PRN (11:33)
[2020-11-14] MEDS ORDERED: IBUPROFEN 400 MG TABLET (FP) PO PRN (11:33)
[2020-11-14] MEDS ORDERED: MAGNESIUM HYDROX 2400MG/30ML ORAL SUSPENSION 30 ML CUP PO PRN (11:33)
[2020-11-14] MEDS ORDERED: MAGNESIUM CITRATE 300 ML BOTTLE PO PRN (11:33)
[2020-11-14] MEDS ORDERED: MAG HYDROX/AL HYDROX/SIMETH 30 ML UNIT-DOSE CUP PO PRN (11:33)
[2020-11-14] MEDS ORDERED: BISMUTH SUBSALICYLATE 524 MG/30 ML PO PRN (11:33)
[2020-11-14] MEDS ORDERED: ACETAMINOPHEN 325 MG TABLET (FP) PO PRN ×2 (11:33)
[2020-11-14] MEDS ORDERED: hydrOXYzine PAMOATE 25 MG CAPSULE (FP) PO ONE (13:34)
[2020-11-14] MEDS: hydrOXYzine PAMOATE 25 MG CAPSULE (FP) PO SCH ×2 (13:41→19:48)
[2020-11-14] MEDS: diazePAM 5 MG TABLET PO SCH ×2 (19:44→23:50)
[2020-11-14] MEDS: MELATONIN 5 MG TABLETS PO SCH (23:50)
[2020-11-14] MEDS: THIAMINE HCL 100 MG TABLET (FP) PO SCH (23:50)
[2020-11-15] MEDS: hydrOXYzine PAMOATE 25 MG CAPSULE (FP) PO SCH ×6 (00:24→22:46)
[2020-11-15] MEDS: diazePAM 5 MG TABLET PO SCH ×4 (06:08→22:46)
[2020-11-15] MEDS: NICOTINE 14 MG/24 HOURS TOPICAL PATCH TD SCH (10:17)
[2020-11-15] MEDS: HYDROCHLOROTHIAZIDE 12.5 MG CAPSULE (FP) PO SCH (10:18)
[2020-11-15] MEDS: LOSARTAN POTASSIUM 50 MG TABLET PO SCH (10:19)
[2020-11-15] MEDS: PRENATAL VITAMINS W/ FOLIC ACID TABLET (FP) PO SCH (10:19)
[2020-11-15] MEDS: NIFEdipine E.R. 90 MG TABLET PO SCH (11:46)
[2020-11-15] MEDS: FAMOTIDINE 10 MG TABLET PO SCH (11:46)
[2020-11-15 16:05] LABS: HEMATOCRIT 36.5 % (35.4-49); HEMOGLOBIN 12.5 GM/dL (11.7-16.9); MCH 27.9 pg (25.7-33.7); MCHC 34.2 g/dl (32.0-35.9); MEAN CELL VOLUME 81.5 fl (80-96); MEAN PLT VOLUME 8.6 fl (7.5-11.1); PLATELET COUNT 154 10^3/uL (134-434); RBC 4.48 M/mm3 (4.00-5.60); RDW 14.3 % (11.9-15.9); WHITE BLOOD COUNT 2.6 K/mm3 (4.0-10.0)
[2020-11-15 16:44] LABS: CALCIUM 8.5 mg/dL (8.5-10.1)
[2020-11-15 16:45] LABS: BLOOD UREA NITROGEN 12.1 mg/dL (7-18)
[2020-11-15 16:48] LABS: ALBUMIN 3.2 g/dl (3.4-5.0); BILIRUBIN,TOTAL 0.4 mg/dL (0.2-1); CREATININE 0.9 mg/dL (0.55-1.3); TOT PROT 6.7 g/dl (6.4-8.2)
[2020-11-15] MEDS: THIAMINE HCL 100 MG TABLET (FP) PO SCH (22:46)
[2020-11-15] MEDS: MELATONIN 5 MG TABLETS PO SCH (22:46)
[2020-11-16] MEDS: hydrOXYzine PAMOATE 25 MG CAPSULE (FP) PO SCH ×5 (05:37→22:57)
[2020-11-16] MEDS: diazePAM 5 MG TABLET PO SCH ×3 (05:37→22:13)
[2020-11-16] MEDS: FAMOTIDINE 10 MG TABLET PO SCH (10:08)
[2020-11-16] MEDS: HYDROCHLOROTHIAZIDE 12.5 MG CAPSULE (FP) PO SCH (10:08)
[2020-11-16] MEDS: LOSARTAN POTASSIUM 50 MG TABLET PO SCH (10:08)
[2020-11-16] MEDS: NIFEdipine E.R. 90 MG TABLET PO SCH (10:08)
[2020-11-16] MEDS: PRENATAL VITAMINS W/ FOLIC ACID TABLET (FP) PO SCH (10:09)
[2020-11-16] MEDS: NICOTINE 14 MG/24 HOURS TOPICAL PATCH TD SCH (10:09)
[2020-11-16] MEDS: MELATONIN 5 MG TABLETS PO SCH (22:13)
[2020-11-16] MEDS: THIAMINE HCL 100 MG TABLET (FP) PO SCH (22:13)
[2020-11-17] MEDS: diazePAM 5 MG TABLET PO SCH ×2 (05:53→17:33)
[2020-11-17] MEDS: hydrOXYzine PAMOATE 25 MG CAPSULE (FP) PO SCH ×5 (05:53→22:02)
[2020-11-17] MEDS: HYDROCHLOROTHIAZIDE 12.5 MG CAPSULE (FP) PO SCH (10:48)
[2020-11-17] MEDS: FAMOTIDINE 10 MG TABLET PO SCH (10:48)
[2020-11-17] MEDS: LOSARTAN POTASSIUM 50 MG TABLET PO SCH (10:48)
[2020-11-17] MEDS: PRENATAL VITAMINS W/ FOLIC ACID TABLET (FP) PO SCH (10:48)
[2020-11-17] MEDS: NIFEdipine E.R. 90 MG TABLET PO SCH (10:48)
[2020-11-17] MEDS: NICOTINE 14 MG/24 HOURS TOPICAL PATCH TD SCH (10:49)
[2020-11-17] MEDS: MELATONIN 5 MG TABLETS PO SCH (22:02)
[2020-11-17] MEDS: THIAMINE HCL 100 MG TABLET (FP) PO SCH (22:02)
[2020-11-17] MEDS ORDERED: METOPROLOL TARTRATE 50 MG TABLET (FP) PO ONE (22:05)
[2020-11-18] MEDS ORDERED: diazePAM 5 MG TABLET PO ONE (06:00)
[2020-11-18] MEDS: hydrOXYzine PAMOATE 25 MG CAPSULE (FP) PO SCH (06:07)
[2020-11-18 06:35] VITALS: BP 112/67; PULSE 66; TEMP 97
== END 2020-11-18 09:11 | disposition home or self-care (01) | DRG 552 ==
LOC: YASAS 10:27 → Y3N 15:51
PROVIDERS: ADMIT Allergy & Immunology; ATTEND Allergy & Immunology
PROC: HZ2ZZZZ Detoxification Services for Substance Abuse Treatment (ICD-10-PCS; principal; 2020-11-14)
DX: M54.5 Low back pain (principal); F10.230 Alcohol dependence with withdrawal, uncomplicated; F14.20 Cocaine dependence, uncomplicated; F19.282 Other psychoactive substance dependence with psychoactive substance-induced sleep disorder; F17.210 Nicotine dependence, cigarettes, uncomplicated; F19.24 Other psychoactive substance dependence with psychoactive substance-induced mood disorder; F41.8 Other specified anxiety disorders; G47.00 Insomnia, unspecified; I10 Essential (primary) hypertension; K21.9 Gastro-esophageal reflux disease without esophagitis; G89.29 Other chronic pain; Z96.641 Presence of right artificial hip joint; Z85.46 Personal history of malignant neoplasm of prostate; Z86.19 Personal history of other infectious and parasitic diseases
CPT/HCPCS: 36415; 80053; 85027; 86780; C9803; U0003; U0005

== ENCOUNTER 2022-08-30 14:27 | Inpatient (IN) | payer OTHER ==
[2022-08-30 15:56] VITALS: BMI 21.6
[2022-08-30] MEDS ORDERED: ACETAMINOPHEN 325 MG TABLET (FP) PO PRN (20:04)
[2022-08-30] MEDS ORDERED: MAGNESIUM HYDROX 2400MG/30ML ORAL SUSPENSION 30 ML CUP PO PRN (20:04)
[2022-08-30] MEDS ORDERED: POLYETHYLENE GLYCOL (HEALTHYLAX) 3350 17 GM PACKET PO PRN (20:04)
[2022-08-30] MEDS ORDERED: BENZONATATE 200 MG CAPSULE PO PRN (20:04)
[2022-08-30] MEDS ORDERED: MAG HYDROX/AL HYDROX/SIMETH 30 ML UNIT-DOSE CUP PO PRN (20:04)
[2022-08-30] MEDS ORDERED: hydrOXYzine PAMOATE 25 MG CAPSULE (FP) PO PRN (20:04)
[2022-08-30] MEDS ORDERED: ONDANSETRON *ODT* 4 MG TABLET SL PRN (20:04)
[2022-08-30] MEDS ORDERED: IBUPROFEN 400 MG TABLET (FP) PO PRN (20:04)
[2022-08-30] MEDS ORDERED: BENZOCAINE/MENTHOL (CHLORASEPTIC ) LOZENGE MM PRN (20:04)
[2022-08-30] MEDS ORDERED: NICOTINE 10 MG CARTRIDGE (INHALER) IH PRN (20:04)
[2022-08-30] MEDS ORDERED: P-EPHED 60MG/TRIPROLIDI 2.5MG TABLET PO PRN (20:04)
[2022-08-30] MEDS ORDERED: IBUPROFEN 600 MG TABLET (FP) PO PRN (20:04)
[2022-08-30] MEDS ORDERED: MELATONIN 5 MG TABLETS PO PRN (20:04)
[2022-08-30] MEDS ORDERED: LOPERAMIDE HCL 2 MG CAPSULE PO PRN (20:04)
[2022-08-30] MEDS ORDERED: BISMUTH SUBSALICYLATE 524 MG/30 ML PO PRN (20:04)
[2022-08-30] MEDS ORDERED: guaiFENesin 600 MG TABLET.ER (FP) PO PRN (20:04)
[2022-08-30] MEDS ORDERED: NICOTINE POLACRILEX 2 MG GUM BUC PRN (20:04)
[2022-08-30] MEDS ORDERED: THIAMINE HCL 100 MG TABLET (FP) PO SCH (22:00)
[2022-08-31 09:37] VITALS: RESP 17; TEMP 99.5
[2022-08-31 09:39] VITALS: BP 144/79; PULSE 69
[2022-08-31] MEDS ORDERED: PRENATAL VITAMINS W/ FOLIC ACID TABLET (FP) PO SCH (10:00)
[2022-08-31] MEDS ORDERED: LOSARTAN POTASSIUM 50 MG TABLET PO SCH (11:15)
[2022-08-31] MEDS ORDERED: HYDROCHLOROTHIAZIDE 12.5 MG CAPSULE (FP) PO SCH (11:15)
[2022-08-31] MEDS ORDERED: FAMOTIDINE 20 MG TABLET PO SCH (11:15)
[2022-08-31] MEDS ORDERED: NIFEdipine E.R. 90 MG TABLET PO SCH (11:15)
[2022-08-31] MEDS ORDERED: PNEUMOC 20-VAL CONJ-DIP CRM/PF 0.5 ML SYRINGE IM ONE (12:00)
[2022-08-31 12:01] LABS: HEMATOCRIT 37.9 % (35.4-49); HEMOGLOBIN 12.7 GM/dL (11.7-16.9); MCH 27.8 pg (25.7-33.7); MCHC 33.5 g/dl (32.0-35.9); MEAN CELL VOLUME 82.7 fl (80-96); MEAN PLT VOLUME 9.3 fl (7.5-11.1); PLATELET COUNT 142 10^3/uL (134-434); RBC 4.58 M/mm3 (4.00-5.60); RDW 14.6 % (11.9-15.9); WHITE BLOOD COUNT 2.8 K/mm3 (4.0-10.0)
[2022-08-31 12:10] LABS: POTASSIUM 3.3 mmol/L (3.5-5.1)
[2022-08-31 12:18] LABS: CALCIUM 8.8 mg/dL (8.5-10.1)
[2022-08-31 12:20] LABS: ALBUMIN 3.3 g/dl (3.4-5.0); BLOOD UREA NITROGEN 10.3 mg/dL (7-18)
[2022-08-31 12:22] LABS: CREATININE 0.7 mg/dL (0.55-1.3)
[2022-08-31 12:23] LABS: BILIRUBIN,TOTAL 0.4 mg/dL (0.2-1); TOT PROT 6.4 g/dl (6.4-8.2)
== END 2022-08-31 12:42 | disposition other institution (70) | DRG 897 ==
LOC: YASAS 14:27 → Y3N 19:34
PROVIDERS: ADMIT Allergy & Immunology; ATTEND Surgery
PROC: HZ2ZZZZ Detoxification Services for Substance Abuse Treatment (ICD-10-PCS; principal; 2022-08-30)
DX: F10.230 Alcohol dependence with withdrawal, uncomplicated (principal); F14.20 Cocaine dependence, uncomplicated; F12.10 Cannabis abuse, uncomplicated; F17.210 Nicotine dependence, cigarettes, uncomplicated; G47.00 Insomnia, unspecified; I10 Essential (primary) hypertension; K21.9 Gastro-esophageal reflux disease without esophagitis; M16.12 Unilateral primary osteoarthritis, left hip; M54.50 Low back pain, unspecified; G89.29 Other chronic pain; Z86.19 Personal history of other infectious and parasitic diseases; Z85.46 Personal history of malignant neoplasm of prostate
CPT/HCPCS: 36415; 80053; 85027; 86780; 87635

== ENCOUNTER 2023-12-15 14:01 | Inpatient (IN) | payer OTHER ==
[2023-12-15 14:36] VITALS: BMI 22.8
[2023-12-15] MEDS ORDERED: ONDANSETRON *ODT* 4 MG TABLET SL PRN (15:09)
[2023-12-15] MEDS ORDERED: LOPERAMIDE HCL 2 MG CAPSULE PO PRN (15:09)
[2023-12-15] MEDS ORDERED: BISMUTH SUBSALICYLATE 524 MG/30 ML PO PRN (15:09)
[2023-12-15] MEDS ORDERED: NICOTINE POLACRILEX 2 MG GUM BUC PRN (15:09)
[2023-12-15] MEDS ORDERED: NICOTINE POLACRILEX 2 MG LOZENGE BC PRN (15:09)
[2023-12-15] MEDS ORDERED: IBUPROFEN 400 MG TABLET (FP) PO PRN (15:09)
[2023-12-15] MEDS ORDERED: BENZONATATE 200 MG CAPSULE PO PRN (15:09)
[2023-12-15] MEDS ORDERED: guaiFENesin 600 MG TABLET.ER (FP) PO PRN (15:09)
[2023-12-15] MEDS ORDERED: BENZOCAINE/MENTHOL (CHLORASEPTIC ) LOZENGE MM PRN (15:09)
[2023-12-15] MEDS: MELATONIN 5 MG TABLETS PO SCH (22:01)
[2023-12-15] MEDS: THIAMINE 100 MG TABLET PO SCH (22:01)
[2023-12-16] MEDS: MAGNESIUM HYDROX 2400MG/30ML ORAL SUSPENSION 30 ML CUP PO PRN (05:49)
[2023-12-16] MEDS: HYDROCHLOROTHIAZIDE 12.5 MG CAPSULE (FP) PO SCH (09:24)
[2023-12-16] MEDS: PRENATAL VITAMINS W/ FOLIC ACID TABLET (FP) PO SCH (09:24)
[2023-12-16] MEDS: FAMOTIDINE 20 MG TABLET PO SCH (09:24)
[2023-12-16] MEDS: NIFEdipine E.R. 90 MG TABLET PO SCH (09:24)
[2023-12-16] MEDS ORDERED: LORazepam 0.5 MG TABLET PO PRN (10:15)
[2023-12-16] MEDS: LORazepam 1 MG TABLET PO SCH (10:28)
[2023-12-16] MEDS: MELATONIN 5 MG TABLETS PO SCH (22:11)
[2023-12-17] MEDS: LORazepam 0.5 MG TABLET PO SCH (05:30)
[2023-12-17] MEDS: POLYETHYLENE GLYCOL (HEALTHYLAX) 3350 17 GM PACKET PO PRN (10:16)
[2023-12-17] MEDS: IBUPROFEN 600 MG TABLET (FP) PO PRN (17:11)
[2023-12-18] MEDS: ACETAMINOPHEN 325 MG TABLET (FP) PO PRN (03:10)
[2023-12-18] MEDS: LORazepam 0.5 MG TABLET PO ONE (05:30)
[2023-12-18] MEDS: MAG HYDROX/AL HYDROX/SIMETH 30 ML UNIT-DOSE CUP PO PRN (09:00)
[2023-12-18 17:51] VITALS: BP 130/83; PULSE 70; RESP 17; TEMP 97.5
== END 2023-12-18 18:37 | disposition other institution (70) | DRG 897 ==
LOC: YASAS 14:01 → Y6N 16:53
PROVIDERS: ADMIT Surgery; ATTEND Surgery
PROC: HZ2ZZZZ Detoxification Services for Substance Abuse Treatment (ICD-10-PCS; principal; 2023-12-15)
DX: F10.230 Alcohol dependence with withdrawal, uncomplicated (principal); F14.20 Cocaine dependence, uncomplicated; F19.282 Other psychoactive substance dependence with psychoactive substance-induced sleep disorder; F19.280 Other psychoactive substance dependence with psychoactive substance-induced anxiety disorder; F12.20 Cannabis dependence, uncomplicated; F17.213 Nicotine dependence, cigarettes, with withdrawal; F19.24 Other psychoactive substance dependence with psychoactive substance-induced mood disorder; B18.2 Chronic viral hepatitis C; I10 Essential (primary) hypertension; K21.9 Gastro-esophageal reflux disease without esophagitis; M54.50 Low back pain, unspecified; G89.29 Other chronic pain; Z96.641 Presence of right artificial hip joint; Z99.89 Dependence on other enabling machines and devices
CPT/HCPCS: 80305; 80307; 93005; 93010

== ENCOUNTER 2023-12-18 18:56 | Inpatient (IN) | payer OTHER ==
[~2023-12-18 18:56] MED LIST changes: +ACETAMINOPHEN 325 MG TABLET (FP) PO PRN; +BENZOCAINE/MENTHOL (CHLORASEPTIC ) LOZENGE MM PRN; +BENZONATATE 200 MG CAPSULE PO PRN; +IBUPROFEN 400 MG TABLET (FP) PO PRN; +LOPERAMIDE HCL 2 MG CAPSULE PO PRN; +NALOXONE (NARCAN) HCL 4 MG/0.1 ML SPRAY NS PRN; +NICOTINE POLACRILEX 2 MG GUM BUC PRN; +NICOTINE POLACRILEX 2 MG LOZENGE BC PRN; +POLYETHYLENE GLYCOL (HEALTHYLAX) 3350 17 GM PACKET PO PRN; -chlordiazePOXIDE HCL 25 MG CAPSULE PO SCH; +guaiFENesin 600 MG TABLET.ER (FP) PO PRN
[2023-12-18] MEDS: MELATONIN 5 MG TABLETS PO SCH (21:25)
[2023-12-18] MEDS: THIAMINE 100 MG TABLET PO SCH (21:25)
[2023-12-19] MEDS: IBUPROFEN 600 MG TABLET (FP) PO PRN (02:44)
[2023-12-19] MEDS: PRENATAL VITAMINS W/ FOLIC ACID TABLET (FP) PO SCH (10:43)
[2023-12-19] MEDS: FAMOTIDINE 20 MG TABLET PO SCH (10:43)
[2023-12-19] MEDS: HYDROCHLOROTHIAZIDE 12.5 MG CAPSULE (FP) PO SCH (10:43)
[2023-12-19] MEDS: NIFEdipine E.R. 90 MG TABLET PO SCH (11:09)
[2023-12-19] MEDS ORDERED: AMMONIUM LACTATE 12% LOTION 225 GM BOTTLE TP PRN (13:41)
[2023-12-19] MEDS: GABAPENTIN 100 MG CAPSULE PO SCH (14:20)
[2023-12-19] MEDS: BACLOFEN 10 MG TABLET (FP) PO SCH (14:20)
[2023-12-19] MEDS: BENZOCAINE 20 % GEL TUBE MM PRN (14:21)
[2023-12-19] MEDS: AMOX TR/POT CLAV 500MG/125MG TABLETS (FP) PO SCH (17:23)
[2023-12-19] MEDS: SUVOREXANT 5 MG TABLET PO PRN (21:01)
[2023-12-20 15:13] LABS: HEMATOCRIT 39.4 % (35.4-49); MCHC 33.1 g/dl (32.0-35.9); MEAN CELL VOLUME 78.6 fl (80-96); MEAN PLT VOLUME 8.6 fl (7.5-11.1); PLATELET COUNT 188 10^3/uL (134-434); RBC 5.01 M/mm3 (4.00-5.60); RDW 16.6 % (11.9-15.9); WHITE BLOOD COUNT 5.1 K/mm3 (4.0-10.0)
[2023-12-20 16:11] LABS: POTASSIUM 4.6 mmol/L (3.5-5.1)
[2023-12-20 16:14] LABS: BLOOD UREA NITROGEN 18.4 mg/dL (7-18)
[2023-12-20 16:17] LABS: CREATININE 0.8 mg/dL (0.55-1.3)
[2023-12-20 16:18] LABS: BILIRUBIN,TOTAL 0.5 mg/dL (0.2-1); TOT PROT 7.9 g/dl (6.4-8.2)
[2023-12-20 17:46] LABS: PH,URINE 5.5 (5.0-8.0); URINE APPEARANCE CLEAR; URINE BILIRUBIN NEGATIVE (NEGATIVE); URINE COLOR YELLOW; URINE GLUCOSE (UA) NEGATIVE (NEGATIVE); URINE KETONE NEGATIVE (NEGATIVE); URINE LEUK ESTERASE NEGATIVE (NEGATIVE); URINE NITRITE NEGATIVE (NEGATIVE); URINE PROTEIN NEGATIVE (NEGATIVE); URINE UROBILINOGEN 0.2 mg/dL (0.2-1.0)
[2023-12-21] MEDS: MAGNESIUM HYDROX 2400MG/30ML ORAL SUSPENSION 30 ML CUP PO PRN (06:14)
[2023-12-21] MEDS ORDERED: METHYL SALICYLATE/MENTHOL 30 GM TUBE TP PRN (08:11)
[2023-12-21] MEDS: HYDROCORTISONE 2.5% TOPICAL CREAM 30 GM TUBE RC SCH (15:59)
[2023-12-26] MEDS: GABAPENTIN 300 MG CAPSULE PO SCH (13:22)
[2023-12-26] MEDS: DOCUSATE SODIUM 100 MG CAPSULE (FP) PO SCH (13:22)
[2023-12-26] MEDS: SUVOREXANT 10 MG TABLET PO PRN (21:19)
[2023-12-26] MEDS: BACLOFEN 10 MG TABLET (FP) PO SCH (21:19)
[2023-12-28] MEDS: HYDROCORTISONE ACETATE 25 MG/SUPP.RECT RC PRN (07:32)
[2024-01-01] MEDS: MAG HYDROX/AL HYDROX/SIMETH 30 ML UNIT-DOSE CUP PO PRN (21:13)
[2024-01-02] MEDS ORDERED: ACETAMINOPHEN 325 MG TABLET (FP) PO PRN (13:17)
[2024-01-02] MEDS: GABAPENTIN 400 MG CAPSULE PO SCH (14:31)
[2024-01-03] MEDS: IBUPROFEN 600 MG TABLET (FP) PO PRN (09:59)
[2024-01-04 06:55] VITALS: RESP 16; TEMP 97.5
[2024-01-04] MEDS: NALOXONE (NYS OPIOID OVERDOSE PROGRAM) 4 MG/0.1 ML SPRAY NS PRN (09:00)
[2024-01-04 09:13] VITALS: BP 128/74; PULSE 81
== END 2024-01-04 09:18 | disposition home or self-care (01) | DRG 895 ==
LOC: YASAS 18:56 → Y3E 18:58
PROVIDERS: ADMIT Allergy & Immunology; ATTEND Psychiatry & Neurology Pain Medicine
PROC: HZ42ZZZ Group Counseling for Substance Abuse Treatment, Cognitive-Behavioral (ICD-10-PCS; principal; 2023-12-18)
DX: F10.20 Alcohol dependence, uncomplicated (principal); F14.20 Cocaine dependence, uncomplicated; F12.20 Cannabis dependence, uncomplicated; F17.210 Nicotine dependence, cigarettes, uncomplicated; F41.9 Anxiety disorder, unspecified; F32.A Depression, unspecified; I48.91 Unspecified atrial fibrillation; I10 Essential (primary) hypertension; K21.9 Gastro-esophageal reflux disease without esophagitis; L85.3 Xerosis cutis; Z96.643 Presence of artificial hip joint, bilateral; M54.50 Low back pain, unspecified; G89.29 Other chronic pain; Z85.46 Personal history of malignant neoplasm of prostate; Z86.19 Personal history of other infectious and parasitic diseases
CPT/HCPCS: 36415; 80053; 81003; 82140; 83036; 85027; 86780; J0475